=== PATIENT | female | born 1960 | race Caucasian/White ===

== ENCOUNTER 2019-01-03 09:04 | Day surgery (SDC) | payer OTHER ==
[~2019-01-03] VITALS: Ht 175.3 cm; Wt 99.8 kg
[~2019-01-03 09:04] MED LIST: ADDERALL10 MG PO; ASPIRIN81 MG PO; CHOLECALCIFEROL PO; CINNAMON PO; GARLIC PO; LEXAPRO10 MG PO; METFORMIN500 MG PO; ROSUVASTATIN CA10 MG PO; SYNTHROID PO; VITAMIN D1000 UNI1 PO
[2019-01-03 11:31] VITALS: BP 139/71
== END 2019-01-03 11:11 | disposition home or self-care (01) | DRG 951 ==
LOC: ENDO 09:04
PROVIDERS: ATTEND Surgery
PROC: 0DJD8ZZ Inspection of Lower Intestinal Tract, Via Natural or Artificial Opening Endoscopic (ICD-10-PCS; principal; 2019-01-03)
DX: Z12.11 Encounter for screening for malignant neoplasm of colon (principal)

== ENCOUNTER 2021-10-01 07:07 | Emergency (ER) | payer OTHER ==
[~2021-10-01] VITALS: Ht 175.3 cm; Wt 90.9 kg
[2021-10-01] VITALS (7 sets, daily range): BP systolic 119–151; BP diastolic 62–91
[2021-10-01 07:39] LABS: HEMATOCRIT 46.6 % (37.0-47.0); HEMOGLOBIN 15.8 g/dl (12.0-16.0); IMMATURE GRANULOCYTES 0.2 % (0.0-5.0); MEAN CORPUSCULAR HGB 30.9 pG CALC (26.0-32.0); MEAN CORPUSCULAR HGB CONC 33.9 g/dL CAL (32.0-36.0); NEUT# 9.41 thou/uL (2.00-7.15); RED BLOOD COUNT 5.12 mill/uL (4.20-5.60)
[2021-10-01 07:55] LABS: ALBUMIN 4.6 g/dL (3.2-5.0); ALKALINE PHOSPHATASE 79 u/l (38-126); AMYLASE 60 u/l (30-110); ANION GAP 12 (6-22 (CALC)); BILIRUBIN, TOTAL 0.5 mg/dL (0.0-1.4); BUN 22 mg/dL (7-17); BUN/CREATININE RATIO 33 (12-20 (CALC)); CARBON DIOXIDE 29 mmol/l (22-30); CHLORIDE 102 mmol/l (95-108); CREATININE 0.7 mg/dL (0.5-1.0); GFR FOR AFR.AMER. > 60 ML/MIN (>=60 (CALC)); GFR OTHER RACES > 60 ML/MIN (>=60 (CALC)); LIPASE 128 u/l (23-300); POTASSIUM 3.6 mmol/l (3.5-5.1); SGOT/AST 28 u/l (14-36); SODIUM 140 mmol/l (137-146); TOTAL PROTEIN 7.9 g/dL (6.3-8.2)
[2021-10-01 08:53] LABS: URINE BILIRUBIN - DIPSTICK NEGATIVE (NEGATIVE); URINE BLOOD DIPSTICK NEGATIVE (NEGATIVE); URINE COLOR YELLOW; URINE GLUCOSE - DIPSTICK NEGATIVE (NEGATIVE); URINE KETONE TRACE mg/dL (NEGATIVE); URINE LEUK ESTERASE NEGATIVE (NEGATIVE); URINE NITRITE - DIPSTICK NEGATIVE (Negative); URINE PH 6.5 (4.5-8.0); URINE PROTEIN - DIPSTICK NEGATIVE (NEG-TRACE); URINE UROBILINOGEN - DIPSTICK 0.2 E.U./dL (0.2)
[2021-10-01] MEDS ORDERED: ONDANSETRON4 MG PO (11:45)
[2021-10-01] MEDS ORDERED: CIPROFLOXACN500 MG PO (11:45)
== END 2021-10-01 12:08 | disposition home or self-care (01) | DRG 373 ==
LOC: ED 07:07
PROVIDERS: Emergency Medicine
DX: A02.0 Salmonella enteritis (principal); E11.9 Type 2 diabetes mellitus without complications; Z86.16 Personal history of COVID-19; Z20.822 Contact with and (suspected) exposure to COVID-19
CPT/HCPCS: Q9967